=== PATIENT | female | born 1970 | race Hispanic/Latino ===

== ENCOUNTER 2016-12-18 17:48 | Emergency (ER) | payer MEDICAID ==
[2016-12-18] MEDS ORDERED: BENADRYL IV ONE (18:50)
[2016-12-18] MEDS ORDERED: NACL 0.9% 1000 ML 1,000 ML IV ONE (18:50)
--- NOTE | 2016-12-18 18:56 | Emergency Department Report ---
History of Present Illness - General Chief Complaint: Overdose Stated Complaint: ALLERGIC REACTION Time Seen by Provider: 12/18/16 18:48 Source: patient, EMS Mode of arrival: Stretcher Limitations: No Limitations - History of Present Illness Initial Comments: 45-year-old female here with complaint of lightheadedness and dizziness after taking an additional dose Lamictal. Patient states she forgot that she took her original dose of Lamictal and ended up taking a second dose approximately 30 minutes after the first. She is now complaining of itchiness and blurry vision. Patient appears very anxious. She's been on Lamictal for over 10 years. She's never had any reaction to the medication the past. MD Complaint: accidental overdose -: Sudden Context: Accidental Overdose: medication error, uncertain what happened Associated Symptoms: dizziness, other Treatments Prior to Arrival: none - Related Data Allergies Allergy/AdvReac Type Severity Reaction Status Date / Time phenytoin sodium Allergy Rash Verified 12/18/16 17:50 [From Dilantin] phenytoin sodium extended Allergy Rash Verified 12/18/16 17:50 [From Dilantin] ED Review of Systems ROS: Stated complaint: ALLERGIC REACTION Other details as noted in HPI Comment: All other systems reviewed and negative Constitutional: denies: chills, fever Eyes: denies: eye pain, eye discharge, vision change ENT: denies: ear pain, throat pain Respiratory: denies: cough, shortness of breath, wheezing Cardiovascular: denies: chest pain, palpitations Endocrine: no symptoms reported Gastrointestinal: denies: abdominal pain, nausea, diarrhea Genitourinary: denies: urgency, dysuria, discharge Musculoskeletal: denies: back pain, joint swelling, arthralgia Skin: denies: rash, lesions Neurological: numbness. denies: headache, weakness, paresthesias Psychiatric: anxiety. denies: depression Hematological/Lymphatic: denies: easy bleeding, easy bruising ED Past Medical Hx - Past Medical History Previous Medical History?: Yes - Social History Smoking Status: Never Smoker Substance Use Type: None ED Physical Exam - General Limitations: No Limitations General appearance: alert, in no apparent distress - Head Head exam: Present: atraumatic, normocephalic - Eye Eye exam: Present: normal appearance. Absent: scleral icterus, conjunctival injection - ENT ENT exam: Present: mucous membranes moist - Neck Neck exam: Present: normal inspection - Respiratory Respiratory exam: Present: normal lung sounds bilaterally. Absent: respiratory distress, wheezes, rales - Cardiovascular Cardiovascular Exam: Present: regular rate, normal rhythm. Absent: systolic murmur, diastolic murmur, rubs, gallop - GI/Abdominal GI/Abdominal exam: Present: soft, normal bowel sounds - Extremities Exam Extremities exam: Present: normal inspection - Back Exam Back exam: Present: normal inspection - Neurological Exam Neurological exam: Present: alert, oriented X3 - Psychiatric Psychiatric exam: Present: normal affect, normal mood - Skin Skin exam: Present: warm, dry, intact, normal color. Absent: rash ED Course Vital Signs 12/18/16 12/18/16 12/18/16 17:50 18:33 18:34 Temperature 97.9 F Pulse Rate 116 H 83 Respiratory 18 11 L 11 L Rate Blood Pressure 162/100 Blood Pressure 174/100 [Right] O2 Sat by Pulse 98 98 98 Oximetry 12/18/16 12/18/16 12/18/16 19:00 20:00 20:45 Temperature Pulse Rate 87 85 90 Respiratory 18 20 18 Rate Blood Pressure Blood Pressure 158/109 169/116 166/99 [Right] O2 Sat by Pulse 99 99 99 Oximetry ED Medical Decision Making - Lab Data Result diagrams: 12/18/16 19:10 12/18/16 19:10 Laboratory Last Values WBC 7.8 K/mm3 (4.5-11.0) 12/18/16 19:10 RBC 4.31 M/mm3 (3.65-5.03) 12/18/16 19:10 Hgb 13.9 gm/dl (10.1-14.3) 12/18/16 19:10 Hct 40.4 % (30.3-42.9) 12/18/16 19:10 MCV 94 fl (79-97) 12/18/16 19:10 MCH 32 pg (28-32) 12/18/16 19:10 MCHC 34 % (30-34) 12/18/16 19:10 RDW 12.4 % (13.2-15.2) L 12/18/16 19:10 Plt Count 299 K/mm3 (140-440) 12/18/16 19:10 Lymph % (Auto) 34.0 % (13.4-35.0) 12/18/16 19:10 [place] % (Auto) 6.5 % (0.0-7.3) 12/18/16 19:10 Eos % (Auto) 2.0 % (0.0-4.3) 12/18/16 19:10 Baso % (Auto) 0.4 % (0.0-1.8) 12/18/16 19:10 Lymph # 2.6 K/mm3 (1.2-5.4) 12/18/16 19:10 [place] # 0.5 K/mm3 (0.0-0.8) 12/18/16 19:10 Eos # 0.2 K/mm3 (0.0-0.4) 12/18/16 19:10 Baso # 0.0 K/mm3 (0.0-0.1) 12/18/16 19:10 Seg Neutrophils % 57.1 % (40.0-70.0) 12/18/16 19:10 Seg Neutrophils # 4.4 K/mm3 (1.8-7.7) 12/18/16 19:10 Sodium 143 mmol/L (137-145) 12/18/16 19:10 Potassium 4.3 mmol/L (3.6-5.0) 12/18/16 19:10 Chloride 105.4 mmol/L (98-107) 12/18/16 19:10 Carbon Dioxide 25 mmol/L (22-30) 12/18/16 19:10 Anion Gap 17 mmol/L 12/18/16 19:10 BUN 10 mg/dL (7-17) 12/18/16 19:10 Creatinine 0.9 mg/dL (0.7-1.2) 12/18/16 19:10 Estimated GFR > 60 ml/min 12/18/16 19:10 BUN/Creatinine Ratio 11.11 % 12/18/16 19:10 Glucose 83 mg/dL (65-100) 12/18/16 19:10 Calcium 8.7 mg/dL (8.4-10.2) 12/18/16 19:10 Total Bilirubin 0.30 mg/dL (0.1-1.2) 12/18/16 19:10 AST 13 units/L (5-40) 12/18/16 19:10 ALT 12 units/L (7-56) 12/18/16 19:10 Alkaline Phosphatase 56 units/L (35-129) 12/18/16 19:10 Total Protein 6.4 g/dL (6.3-8.2) 12/18/16 19:10 Albumin 4.2 g/dL (3.9-5) 12/18/16 19:10 Albumin/Globulin Ratio 1.9 % 12/18/16 19:10 - Medical Decision Making 45-year-old female here with accidental overdose. Patient and additional dose of Lamictal. Her neurological exam seems unremarkable to me at this point. She is very anxious. Plan to give her an additional dose of Benadryl and will monitor her for several hours. Observed for several hours. Dr. Lindquist to discharge after fluids complete. Patient appears well. Critical care attestation.: If time is entered above; I have spent that time in minutes in the direct care of this critically ill patient, excluding procedure time. ED Disposition Clinical Impression: Allergic reaction, Dizziness Disposition: DC-01 TO HOME OR SELFCARE Is pt being admited?: No Condition: Stable Instructions: Dizziness (ED) Referrals: PRIMARY CARE, [Primary Care Provider] - 3-5 Days
[2016-12-18 19:38] LABS: Basophils % (Auto) 0.4 % (0.0-1.8); Hemoglobin 13.9 gm/dl (10.1-14.3); White Blood Count 7.8 K/mm3 (4.5-11.0)
[2016-12-18 19:42] LABS: Hematocrit 40.4 % (30.3-42.9); Mean Corpuscular HGB Conc 34 % (30-34); Mean Corpuscular Hemoglobin 32 pg (28-32); Mean Corpuscular Volume 94 fl (79-97); Platelet Count 299 K/mm3 (140-440); Red Blood Count 4.31 M/mm3 (3.65-5.03); Red Cell Distribution Width 12.4 % (13.2-15.2)
[2016-12-18 20:04] LABS: Alanine Aminotransferase 12 units/L (7-56); Albumin 4.2 g/dL (3.9-5); Albumin/Globulin Ratio 1.9 %; Alkaline Phosphatase 56 units/L (35-129); Anion Gap 17 mmol/L; BUN/Creatinine Ratio 11.11; Blood Urea Nitrogen 10 mg/dL (7-17); Calcium 8.7 mg/dL (8.4-10.2); Carbon Dioxide 25 mmol/L (22-30); Chloride 105.4 mmol/L (98-107); Glucose 83 mg/dL (65-100); Potassium 4.3 mmol/L (3.6-5.0); Sodium 143 mmol/L (137-145); Total Protein 6.4 g/dL (6.3-8.2)
[2016-12-18 21:06] VITALS: BP 166/99
== END 2016-12-18 20:50 | disposition home or self-care (01) ==
LOC: ED 17:48
DX: R42 Dizziness and giddiness (principal); T42.6X5A Adverse effect of other antiepileptic and sedative-hypnotic drugs, initial encounter; Z88.8 Allergy status to other drugs, medicaments and biological substances; Y92.89 Other specified places as the place of occurrence of the external cause
CPT/HCPCS: 36415; 80053; 85025; 96361; 96374; 99284; J1200; J7030